=== PATIENT | male | born 1970 | race Caucasian/White ===

== ENCOUNTER → 2019-05-01 11:36 | Outpatient (CLI) | payer BC, SELFPAY ==
[2019-05-01 15:55] LABS: ALB/GLOB Ratio 1.1 RATIO (0.9-2.4); AST(SGOT) 23 U/L (15-37); Alanine Aminotransfer ALT/SGPT 45 U/L (16-61); Albumin, Serum 3.9 g/dL (3.2-5.0); Alkaline Phosphatase 70 U/L (45-117); Anion Gap 10 (5-15); BUN 14 mg/dL (7-18); BUN/Creat Ratio 15.9 RATIO (10-20); Calcium,Total 8.5 mg/dL (8.5-10.1); Chloride 108 mmol/L (98-107); Cholesterol 142 mg/dL (200); Creatinine, Serum 0.88 mg/dL (0.70-1.30); EST Glomerular Filtration Rate 97 mL/min (>60); Est Glom Filt Rate - Afr Amer 117 mL/min (>60); Globulin 3.5 g/dL (2.2-4.2); Glucose 80 mg/dL (74-106); High Density Lipoprotein 43 mg/dL; PSA,Total - Annual Screen 0.73 ng/mL (0.00-4.00); Potassium 3.7 mmol/L (3.5-5.1); Protein, Total 7.4 g/dL (6.4-8.2); Sodium Level 144 mmol/L (136-145); Triglycerides 55 mg/dL; Very Low Density Lipoprotein 11 mg/dL (5-40)
== END ==
PROVIDERS: Family Provider Family Medicine; PCP Family Medicine; Referring Provider Family Medicine; Visit Provider Nurse Practitioner Family
DX: Z00.00 Encounter for general adult medical examination without abnormal findings (principal); Z12.5 Encounter for screening for malignant neoplasm of prostate
CPT/HCPCS: 36415; 80053; 80061; 84153; G0103

== ENCOUNTER → 2022-07-18 | Outpatient (CLI) | payer BC, SELFPAY ==
--- NOTE | 2022-07-18 16:40 | RAD_ITS ---
INDICATION: PAIN EXAMINATION/TECHNIQUE: X-RAY - RIGHT XR Knee Complete 4 Views or More 4 VIEWS COMPARISON: None. FINDINGS: SOFT TISSUES: No soft tissue swelling or gas. No radiopaque foreign body. BONES/JOINTS: No acute fracture or subluxation.. There is normal alignment of the femur and the tibia. There is a mildly irregular contour of the articular surface the lateral aspect of the medial femoral condyle. This is only visible on single view. There is a small joint effusion, and there is a subtle lateral subluxation of the patella at the patellofemoral joint. No acute fractures. RAD/Knee 4 or More Views IMPRESSION: 1. No acute fracture or dislocation noted. 2. Incidental note of mild lateral subluxation of patella. 3. 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 Consider follow-up evaluation with cross-sectional imaging, either CT or MRI for further clarification. 4. Small joint effusion. Electronically Signed: Bolivar Irving MD at 18:41 EST ,
== END | disposition home or self-care (01) ==
PROVIDERS: PCP Family Medicine; Referring Provider Family Medicine; Visit Provider Family Medicine
DX: M25.561 Pain in right knee (principal)
CPT/HCPCS: 73564

== ENCOUNTER → 2022-07-19 | Outpatient (CLI) | payer BC, SELFPAY ==
[2022-07-19 10:53] LABS: Anion Gap 6 (5-15); BUN 11 mg/dL (7-18); Calcium,Total 8.7 mg/dL (8.5-10.1); Chloride 105 mmol/L (98-107); Cholesterol 161 mg/dL (200); Creatinine, Serum 0.84 mg/dL (0.70-1.30); EST Glomerular Filtration Rate 101 mL/min (>60); Est Glom Filt Rate - Afr Amer 122 mL/min (>60); Glucose 98 mg/dL (74-106); High Density Lipoprotein 47 mg/dL; PSA,Total - Annual Screen 0.76 ng/mL (0.00-4.00); Sodium Level 140 mmol/L (136-145); Triglycerides 88 mg/dL; Very Low Density Lipoprotein 18 mg/dL (5-40)
== END | disposition home or self-care (01) ==
LOC: MTLAB 09:09
PROVIDERS: PCP Family Medicine; Referring Provider Family Medicine; Visit Provider Family Medicine
DX: Z13.1 Encounter for screening for diabetes mellitus (principal); Z13.220 Encounter for screening for lipoid disorders; Z12.5 Encounter for screening for malignant neoplasm of prostate
CPT/HCPCS: 36415; 80048; 80061; 84153; G0103

== ENCOUNTER → 2022-08-22 | Outpatient (CLI) | payer BC, SELFPAY ==
--- NOTE | 2022-08-22 11:23 | MRI_ITS ---
STUDY: MRI RIGHT KNEE REASON FOR EXAM: Male, 51 years old. Knee pain. Instability. TECHNIQUE: Standardized fat and water weighted pulse sequences were obtained in all 3 orthogonal planes. COMPARISON: None. FINDINGS: There is medial meniscus tear of the posterior horn, series 3 images 33/46 through 35/46. Normal hyaline cartilage of the medial femorotibial compartment. Normal medial femoral condyle and tibial plateau. Normal medial collateral ligamentous complex (MCL). Normal distal semimembranosus, gracilis and semitendinosus tendons. Normal lateral meniscus. Normal hyaline cartilage of the lateral femorotibial compartment. Normal lateral femoral condyle and tibial plateau. Normal proximal tibiofibular articulation. Normal lateral collateral (fibular) ligament. Normal popliteus tendon. Normal biceps femoris tendon. Normal anterior cruciate ligament (ACL). Normal posterior cruciate ligament (PCL). Normal congruent patellofemoral articulation. Normal hyaline cartilage of the patellofemoral compartment. Normal medial and lateral patellar retinaculum. Normal quadriceps tendon. Normal patellar tendon. Normal Hoffa''s fat pad. There is a small volume joint effusion. The soft tissues are unremarkable. The otherwise visualized osseous structures are unremarkable. MRI/Lower Ext Joint Only (Routine) IMPRESSION: Medial meniscus tear. Joint effusion. Electronically Signed: Ke Maddox MD at 19:55 EST ,
== END | disposition home or self-care (01) ==
PROVIDERS: PCP Family Medicine; Visit Provider Family Medicine
DX: M25.561 Pain in right knee (principal)
CPT/HCPCS: 73721

== ENCOUNTER 2022-10-09 05:55 | Day surgery (SDC) | payer BC, SELFPAY ==
[2022-10-09] VITALS (7 sets, daily range): BP systolic 103–150; BP diastolic 55–89; PULSE 63–77; RESP 16; TEMP 36.2–37.1; O2SAT 93–98; BMI 38.2
[2022-10-09] MEDS: Lactated Ringers 1,000 ML 15 ML IV (06:54)
--- NOTE | 2022-10-09 07:05 | HP.PCM_ITS ---
History and Physical Date of Admission: 10/09/22 [facility] [address] [place] [address] OFFICE VISIT Date of Service:? 09/12/22 MR#: [id number] Acct: [id number] Name:JESSICA DONALDSON Rep #: [id number] : 1970 ? ? Provider: Dr. Eliel Bowers, DO Age/Sex:? 52/M ? ? Location: [facility] [place].[facility] Status: Signed Intake Vital Signs ? 09/12/2308:50 Height 5 ft 10 in Weight: 267 lb BMI 38.2 Intake Visit Reasons:?RIGHT KNEE Accompanied by: Self Is patient in pain?: Yes Pain scale (1-10): 4 Allergies No Known Allergies Allergy (Unverified 09/12/22 09:51) Medications ascorbate calcium (vitamin C) 500 mg tablet 500 mg PO DAILY 09/12/22 [History Confirmed 09/12/22] ibuprofen 600 mg tablet 600 mg PO Q8H PRN 09/12/22 [History Confirmed 09/12/22] multivitamin (Daily Multi-Vitamin tablet) 1 tab PO DAILY 09/12/22 [History C onfirmed 09/12/22] PFSH Surgical History?(Updated 09/12/22 @ 09:52 by Ophelia Garcia) Hx of tonsillectomy Family History?(Updated 09/12/22 @ 09:53 by Ophelia Garcia) Mother Diabetes Social History?(Updated 09/12/22 @ 09:52 by Ophelia Garcia) Smoking Status:? Never smoker alcohol intake:? current alcohol intake frequency: a few times a month HPI RIGHT KNEE Details: Parts of this documentation were recorded by a scribe, this documentation accurately reflects the service provided and the decisions made by me, Dr. Eliel Bowers, DO 09/03/22 5103. JESSICA GOODWIN is a 52 year old M NEW patient referral from Dr. Amaya here today for right knee pain that he has had since about 05/2021. He states that he has medial knee pain. 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 He states that he does have increased pain and sharp pains in the knee after he is ambulating for long periods of time. Denies any locking of the knee. He is unable to fully extend the knee d/t pain over the medial knee. He also states that if he steps in a hole his knee will be forced into a hyperextension position. He states that he gets the locking/buckling sensation of the knee multiple times a day. Denies any past surgery or injections of the knee. He has had xrays and an MRI of the knee. He has tried ibuprofen for the pain for pain in the evenings. He does use a knee brace at times and he does use a knee sleeve as well. He is a patel and an engineer conductor. He states that when he was in is 20s he did land in a pond and his knee hyperextended at that time. Ortho Exam General General: Yes no acute distress Neurologic: Yes alert and Yes oriented x3 Psychologic: Yes reasonable and appropriate Right Knee Skin/Wound: Yes CDI, No erythema, No ecchymosis and No swelling Homans Sign: No Knee ROM: No ROM-Extension -20 to 0 (lacking 3) and No ROM-Flexion 0-140 (113) Examination: Yes Med jt line tenderness, No Lat jt line tenderness, No Pain with flexion, Yes Pain with extention, Yes Al's Test and No TTP Pes Anserine Stability: NML: Anterior Drawer, NML: Posterior Drawer, NML: Valgus 0, NML: Valgus 30, NML: Varus 0 and NML: Varus 30 Patella Translation: 1 Patella Grind: No KNEE: no joint effusion no patellar instability positive medial Jing Left Knee Patella Translation: 1 Supplemental Info 08/22/2022 MRI right knee: Complex tear posterior horn medial meniscus 07/18/2022 x-ray right knee: Mild lateral patellar tilt and arthrosis Coding Level of Care Code 27224 Diagnoses Complex tear of medial meniscus of right knee? S83.231A Assessment and Plan Assessment and Plan (1) Complex tear of medial meniscus of right knee: ?Status:?Acute Plan Obtained X-rays of patient's right knee. Personally reviewed x-rays. There is no obvious fracture, dislocation, or lucency noted. Patient educated that he conrad shave a tear of the medial meniscus of the right knee. Educated that his ligaments in the knee are all intact. Treatment options are do nothing or PT or bracing or steroid injection or right knee arthroscopy which would include a medial meniscus repair vs partial medial meniscectomy. It is recommended that he has the knee arthroscopy. If he has the meniscus repaired he would be NWB for 6 weeks and 6 more weeks before any type of strenous activity and will require a longer recovery. Reviewed the pre-operative plans with the patient. Risks and benefits of the procedure were fully explained, including but not limited to infection, neurovascular injury, continued pain, arthritis, stiffness, need for further surgery, re-injury, DVT, PE, general risks of anesthesia, and loss of limb or life. The patient understands all the risks and does wish to proceed with written consent for right knee partial medial meniscectomy. He DOES NOT wish to have the meniscus repaired ,? he understands the risks. No ibuprofen or aleve 7 days prior to surgery. Follow up 2 weeks post op or sooner if pain, swelling, numbness or associated symptoms, or concerns develop.? All questions answered. Patient in agreement of plan. I will forward a copy to Dr. Amaya thank you for this referral 09/12/22 1030 <Electronically signed by Eliel Bowers DO> Date Eliel Bowers DO Cosigner Signature: Date (if applicable) I have examined the patient and the H&P has been reviewed. There are no clinical changes since date of exam.
[2022-10-09] MEDS: Lidocaine 1% /Epi 1:100 (20ml) 20 ML Vial (07:48)
[2022-10-09] MEDS: Bupivacaine Mpf 0.5% 30 ML VIAL (08:00)
[2022-10-09] MEDS: Epinephrine (1 mg/ml) 1 MG/ML VIAL (08:05)
[2022-10-09] MEDS: MethylPREDNISolone Acetate 40 MG/ML Vial IM (08:11)
--- NOTE | 2022-10-09 08:13 | OP.PCM_ITS ---
Operative Report Date of Procedure: 10/09/22 Preop diagnosis: Right knee complex tear posterior horn medial meniscus DJD Postoperative diagnosis: Complex tear posterior horn medial meniscus and grade 3 chondral flap medial femoral condyle Procedure: Right knee arthroscopic partial medial meniscectomy chondroplasty medial femoral condyle Anesthesia: General Estimated blood loss: 5 mL Tourniquet time: 30 minutes 300 mmHg Complications: none Indication for procedure: 52-year-old male patient who has had ongoing knee pain who has failed conservative treatment who did have MRI evidence of medial meniscus tear corresponding with his pain the patient did wish to proceed with an elective arthroscopic surgery to attempt to alleviate the symptoms. Risk benefits and alternatives of the procedure were reviewed including risk of bleeding infection nerve artery tissue damage need for further surgery continued pain and expected postoperative course. Procedure: The patient was met in the preoperative holding area. The operative extremity was identified by both patient and physician and family and marked. Patient was brought back to the operating room on a wheeled cart and transferred to the operating table in the supine position. Anesthesia was started. A well- padded tourniquet was placed on the operative extremity. A lower extremity leg aguilar was secured to the operative extremity. The contralateral extremity was well-padded and the end of the bed was flexed to 90 degrees. The patient was prepped and draped in the usual sterile fashion. A timeout was called to ensure the proper patient, procedure, and extremity were being contemplated. 0.5% Marcaine with epinephrine was injected into the planned incisional areas under the skin only. An Esmarch was used to exsanguinate the extremity and the tourniquet was inflated. An 11 blade scalpel was used to make a stab incision in the anterior lateral portal. The arthroscope was inserted into the intercondylar notch and inflow and outflow tubes were attached. Arthroscopic visualization began. The medial compartment was entered. An 18-gauge spinal needle was used to establish the placement for anterior medial portal. An 11 blade scalpel was used to make a stab incision. Blunt probe was inserted followed by a meniscal probe. Medially there was noted to be a chondral flap about a centimeter of the medial femoral condyle which was debrided with a shaver, there is also noted to be complex tearing of the posterior horn medial meniscus with use of biting instruments and a shaver and ArthroCare wand partial medial meniscectomy was performed the ACL was found to be intact. The lateral compartment was entered mild fraying of the root of the lateral meniscus but no instability of the meniscus and the remainder of the cartilage and lateral compartment was intact the arthroscope was switched to the medial portal to complete the procedure. The medial and lateral gutters were inspected and were free of loose bodies. The patellofemoral joint was inspected mild cartilage wear of the trochlea and grade 2-3 of the patella. There was good patellar tracking. The knee was thoroughly irrigated and drained. An intra-articular injection with 5 cc 0.5% Marcaine plain and 40 mg of Depo-Medrol was injected intra-articularly. The arthroscope was removed the portals were closed with 3-0 nylon arthroscopic stitches. Followed by Xeroform 4 x 4's ABDs web roll and an Edmundo wrap. The tourniquet was let down and the drapes were removed. All counts were correct. The patient was brought back to the PACU in stable condition.
--- NOTE | 2022-10-09 08:17 | DCINST_ITS ---
Discharge Instructions Diet Discharge Diet: No restrictions Activity Weight Bearing Status: Weight bearing as tolerated Keep extremity elevated above heart level: Operative Extremity Dressing / Incision Call your doctor if you observe: Shortness of breath and Chest pain Additional Dressing/Incision Instructions:: Ice and elevate next 72 hours .keep dressing on clean and dry for 48 hours then may remove begin showering daily but do not submerge in tub or pool. After shower may apply Band-Aids . Encourage knee range of motion weightbearing as tolerated, use crutches until confident in knee then may discontinue. No strenuous activity. When not ambulating keep iced and elevated next 72 hours. Do not mix pain medication with recreational drugs or alcohol only take as prescribed can be addictive and abusive, call with any questions or concerns. Follow Up Care Please Follow Up With: Eliel Bowers DO When: 2 weeks Test Results: Test results from this visit will be discussed in further detail at your follow- up appointment, if applicable. Discharge Plan Admission Primary Reason for Your Visit: Right knee arthroscopy Attending Provider: Eliel Bowers Primary Care Provider: Rolando Amaya Discharge Orders/Prescriptions Prescriptions: New oxycodone 5 mg tablet 5 - 10 mg PO Q4H PRN (Reason: pain) 5 Days Qty: 25 0RF No Action multivitamin [Daily Multi-Vitamin] Tablet 1 tab PO DAILY ascorbate calcium (vitamin C) 500 mg tablet 500 mg PO DAILY ibuprofen 600 mg tablet 600 mg PO Q8H PRN (Reason: Pain) Referrals / Follow Up: Rolando Amaya MD [Primary Care Provider] - Disposition Disposition (needs filled in before D/C Order can be placed): Home, Self Care
== END 2022-10-09 10:19 | disposition home or self-care (01) ==
LOC: SDC 06:00 → AC 06:22
PROVIDERS: PCP Family Medicine; Referring Provider Orthopaedic Surgery; Visit Provider Orthopaedic Surgery
PROC: (CPT 29870; principal; 2022-10-09 07:10)
DX: S83.231A Complex tear of medial meniscus, current injury, right knee, initial encounter (principal); X58.XXXA Exposure to other specified factors, initial encounter
CPT/HCPCS: 29881; 01400; J7120; J2405